=== PATIENT | male | born 1945 | race Caucasian/White ===

== ENCOUNTER 2021-03-19 15:06 | Emergency (ER) | payer OTHER ==
[~2021-03-19 15:06] MED LIST: ACETAMINOPHEN325 MG PO; AMARYL 2MG TABLE2 MG PO; ASPIRIN CHEWABL81 MG PO; AUGMENTIN 875-1 EACH PO; ELIQUIS 5 MG TAB5 MG PO; FENOFIBRATE160 MG PO; FLEXERIL 10 MG10 MG PO; FLORASTOR250 MG PO; FOLIC ACID 1 MG1 MG PO; GLUCOPHAGE XR500 MG PO; HUMALOG 10100 UNITS/ SC; INVANZ 1 GM VIAL1 GM IV; IPRAT-ALBUT 0.5-3 ML NEB; LANTUS INS100 UTS/M1 SC; LOPRESSOR 25 MG25 MG PO; METOPROLOL TART25 MG PO; NORCO 5-325 TA1 EACH PO; NORVASC10 MG PO; OMEPRAZOLE20 MG PO; PRAVACHOL20 MG PO; PROTONIX 40 MG40 MG GT; VALSARTAN-HCTZ1 EACH PO; VITAMIN B-1100 M1 PO; ZOFRAN ODT 4 MG4 MG PO
[2021-03-19 15:42] LABS: HEMOGLOBIN 13.4 gm/dl (14.0-17.5); RED BLOOD COUNT 4.68 M/UL (4.20-5.50); WHITE BLOOD COUNT 10.6 K/UL (4.5-11.0)
[2021-03-19 16:16] LABS: BUN/CREATININE RATIO 30 (0-10)
[2021-03-19] MEDS ORDERED: PANTOPRAZOLE SO20 MG PO (20:27)
[2021-03-19] MEDS ORDERED: PHENERGAN 12.12.5 M1 PO (20:27)
== END 2021-03-19 20:41 | disposition home or self-care (01) ==
LOC: ER1 15:06
PROVIDERS: Emergency Medicine
DX: R07.9 Chest pain, unspecified (principal); E11.65 Type 2 diabetes mellitus with hyperglycemia; R19.7 Diarrhea, unspecified; R11.2 Nausea with vomiting, unspecified; I10 Essential (primary) hypertension; Z85.828 Personal history of other malignant neoplasm of skin; Z86.16 Personal history of COVID-19
CPT/HCPCS: 71045; 80053; 81001; 82550; 82553; 82962; 83605; 83690; 83874; 84484; 85025; 93005; 96374; 99285; C9113; J2405; J7030; Q9967

== ENCOUNTER → 2021-10-31 | Outpatient (CLI) | payer MEDICARE ==
[~2021-10-31] MED LIST changes: +PANTOPRAZOLE SO20 MG PO; +PHENERGAN 12.12.5 M1 PO
== END ==
LOC: HEART 5 10-24 11:00
DX: R06.02 Shortness of breath (principal); I08.1 Rheumatic disorders of both mitral and tricuspid valves
CPT/HCPCS: 93306

== ENCOUNTER → 2021-11-22 | Outpatient (CLI) | payer MEDICARE | LOC: HEART 5 10:00 | DX: R05.3 Chronic cough (principal); R06.02 Shortness of breath | CPT/HCPCS: 94010 ==

== ENCOUNTER → 2022-06-19 | Outpatient (CLI) | payer MEDICARE | LOC: CT 06-11 08:00 → US 06-11 13:30 → CT 10:00 | DX: K40.90 Unilateral inguinal hernia, without obstruction or gangrene, not specified as recurrent (principal); R42 Dizziness and giddiness | CPT/HCPCS: 70450 ==